=== PATIENT | female | born 1935 | race Caucasian/White ===

== ENCOUNTER → 2016-10-28 | Outpatient (CLI) | payer OTHER ==
[~2016-10-28] MED LIST: ACET-749 PO; ACET325T96 PO; AMLO-110 PO; ASPCH81X PO; ASPI-435 PO; CHOL1000 PO; CLR10 PO; CYAN10005 PO; ESCI10TA17 PO; GLUC750C4 PO; LATA0.009 OPR; LATA0.5S OPR; LEVO100T PO; LEVO150T9 PO; LORA10CA2 PO; NEBI10TA2 PO; SPIR25TA PO; TIMO0.2528 OPR; TIMO0.5S2 OPR
--- NOTE | 2016-11-03 07:24 | CODING QUERY MEDICAL NECESSITY ---
SUPPORTING DIAGNOSIS NEEDED A supporting diagnosis is required for the test/procedure performed on this patient in order for us to be reimbursed by the patient's insurance. Please provide a supporting diagnosis for the following test/procedure listed below next to the test name along with your signature. *If there is no additional diagnosis for this patient that would support the following test/procedure please document that below next to the test/procedure. Test(s)/Procedure(s) that require a supporting diagnosis: * DXA BONE DENSITY DIAGNOSIS: * DOS: 10/28/16 Provider Signature: Date: Thank you Jeanie Colon Health Information Management Once completed, please kindly fax back to [phone] For questions please call [phone]
== END | disposition home or self-care (01) ==
LOC: C.MAMM 13:43
PROVIDERS: ATTEND Family Medicine
DX: Z13.820 Encounter for screening for osteoporosis (principal)

== ENCOUNTER → 2017-01-11 | Outpatient (CLI) | payer OTHER ==
[~2017-01-11] MED LIST changes: -ASPCH81X PO; -GLUC750C4 PO; -LEVO150T9 PO; -LORA10CA2 PO; -TIMO0.2528 OPR
--- NOTE | 2017-01-11 16:38 | MAMMOGRAPHY REPORT ---
BILATERAL DIGITAL SCREENING MAMMOGRAM WITH CAD: 01/11/2017 CLINICAL HISTORY: Routine screening. Patient has no complaints. TECHNIQUE: Bilateral CC and MLO views were obtained. Current study was also evaluated with a Comput er Aided Detection (CAD) system. COMPARISON: Comparison is made to exams dated: 01/09/2016 mammogram, 11/08/2013 mammogram, 01/07/2015 mammogram, 11/06/2012 mammogram, 11/03/2011 mammogram, and 11/02/2010 mammogram - [facility]. BREAST COMPOSITION: The tissue of both breasts is heterogeneously dense, which may obscure small ma sses. FINDINGS: A linear scar marker overlies the upper outer middle one third of the right breast. There are a few benign round calcifications in the breasts. No suspicious mass, architectural distortion or cluster of new, suspicious microcalcifications is seen. IMPRESSION: ACR BI-RADS CATEGORY 1: NEGATIVE There is no mammographic evidence of malignancy. A 1 year screening mammogram is recommended. The p atient will receive written notification of the results. Approximately 10% of breast cancers are not detected with mammography. A negative mammographic repor t should not delay biopsy if a clinically suggestive mass is present. Chaya Nair M.D. ay/:01/11/2017 16:06:39 Tapper Helper: James CHARLES)(M), [facility] letter sent: Normal 1/2 BI-RADS Code: ACR BI-RADS Category 1: Negative
== END | disposition home or self-care (01) ==
LOC: C.MAMM 13:26
PROVIDERS: ATTEND Obstetrics & Gynecology
DX: Z12.31 Encounter for screening mammogram for malignant neoplasm of breast (principal)

== ENCOUNTER → 2017-01-19 | Day surgery (SDC) | payer OTHER ==
[2017-01-04 08:34] VITALS: Ht 154.9 cm; Wt 70.9 kg
[~2017-01-19] VITALS: Ht 154.9 cm; Wt 70.9 kg
[~2017-01-19] MED LIST changes: +ACETAMINOPHEN/CODEINE 300/30MG TAB PO PRN; +ATROPINE SULFATE 0.1 MG/ML 5ML SYR IV PRN; +BUPIVACAINE 0.5 % 5 MG/1 ML PF 10ML VIAL ONE; +CLINDAMYCIN PHOS 150 MG/ML 2 ML VIAL IV SCH; +EpHEDrine SULFATE INJ 50 MG/ML AMP IV PRN; +FENTANYL CITRATE INJ 50 MCG/1 ML 2 ML VIAL IV PRN; +FENTANYL CITRATE INJ 50 MCG/1 ML 2 ML VIAL ONE; +LACTATED RINGER'S 1000ML 1,000 ML IV SCH; +LIDOCAINE HCL 2% 2 ML VIAL (20MG/ML) ONE; +LIDOCAINE HCL 2% LOCAL 20 ML VIAL ONE; +MIDAZOLAM HCL 1 MG/ML 2ML VIAL ONE; +ONDANSETRON INJ 2 MG/ML 2 ML VIAL IV PRN; +PROPOFOL IV EMULSION 10 MG/ML 20 ML VIAL IV ONE; +SODIUM CHLORIDE 0.9% 1000ML 1,000 ML IV SCH
--- NOTE | 2017-01-19 06:55 | History & Physical Bridge - SC ---
H&P Re-Evaluation Bridge Note: I have examined the patient, reviewed the History & Physical and in the interval since the performance of the History & Physical I have noted the following changes of clinical significance: No changes noted
[2017-01-19 07:40] VITALS: TEMP 36.3
--- NOTE | 2017-01-19 07:40 | Discharge Instructions-SurgCtr ---
Discharge Instructions Date of Service Jan 19, 2017. Visit Reason for Visit: Right Carpal Tunnel Syndrome, Right Ring Trigger F Discharge Discharge Diagnosis / Problem: RIGHT CARPAL TUNNEL SYNDROME, RING TRIGGER FINGER Discharge Goals Goal(s): Decrease discomfort, Improve function, Therapeutic intervention Activity Recommendations Activity Limitations: per Instructions/Follow-up section LIMITED USE OF RIGHT HAND Anesthesia . Post Anesthesia Instructions: If you have had General Anesthesia or IV Sedation: * Do not drive today. * Resume driving when surgeon permits. * Do not make important decisions or sign legal documents today. * Call surgeon for: 1. Temperature elevations greater than 101 degrees F. 2. Uncontrollable pain. 3. Excessive bleeding. 4. Persistent nausea and vomiting. 5. Medication intolerance (nausea, vomiting or rash). * For nausea and vomiting use only clear liquids such as: tea, soda, bouillon until nausea subsides, then gradually increase diet as tolerated. * If you have any concerns or questions, call your surgeon's office. If physician is unavailable and it is an emergency, call 911 or go to the nearest emergency room. . Instructions / Follow-Up Instructions / Follow-Up MEDICATIONS: * Resume previous medications unless instructed otherwise by your surgeon. * Always take pain medication on a full stomach or with food to avoid upset stomach. * Do not drink alcohol or drive while taking narcotics. * Ibuprofen or Tylenol may be taken if narcotic not needed. SPECIAL CARE INSTRUCTIONS: __ None __ Keep extremity elevated and iced x 48 hours; apply ice 20-30 minutes 8-10 times/day. May remove at night. __ Sling __24 hrs/day __ Remove at night __ Shoulder Immobilizer __ 24 hrs/day __ Remove at night _X_ Dressing _X_ Maintain until seen in office, may shower with plastic over site __ Remove dressings in 24-48 hours and then may shower __ Cover incisions with band-aids after showering __ Do not remove steri-strips Call physician if chills or temperature rises above 102 degrees or pain unrelieved by prescribed pain medications at . FOLLOW UP IN 2 WEEKS . Diet Recommendations Home Diet: resume previous diet Procedures Procedures Performed: Right Carpal Tunnel Release And Right Ring Trigger Finger Release Pending Studies Studies pending at discharge: no Medical Emergencies . Who to Call and When: Medical Emergencies: If at any time you feel your situation is an emergency, please call 911 immediately. . Non-Emergent Contact Non-Emergency issues call your: Surgeon . . "Provider Documentation" section prepared by Mello Esqueda.
--- NOTE | 2017-01-19 07:44 | [facility] Post Operative Brief Note ---
Immediate Operative Summary Operative Date Jan 19, 2017. Pre-Operative Diagnosis Right Carpal Tunnel Syndrome, Right Ring Trigger Finger Post-Operative Diagnosis Same Procedure(s) Performed Right Carpal Tunnel Release And Right Ring Trigger Finger Release Surgeon Dr. Begum Dairy Equipment Repairer Surgeon(s) Faisal Esqueda PA-C Estimated Blood Loss Minimal Findings Right Carpal Tunnel Syndrome; Right Ring Trigger Finger Specimens None Anesthesia Local with IV Sedation Complication(s) None Disposition Recovery Room / PACU
--- NOTE | 2017-01-19 07:59 | OPERATIVE REPORT ---
DATE OF OPERATION: 01/19/2017 SURGEON: Puneet Begum MD. LIME BOILER: PHILLIP Hernandez. PREOPERATIVE DIAGNOSES: 1. Right carpal tunnel syndrome. 2. Right ring trigger finger. POSTOPERATIVE DIAGNOSES: Same. PROCEDURE PERFORMED: 1. Right carpal tunnel release. 2. Right ring trigger finger release. COMPLICATIONS: None. ESTIMATED BLOOD LOSS: Minimal. TOURNIQUET TIME: 8 minutes at 250 mmHg. OPERATIVE INDICATIONS: The patient is a 81-year-old elderly female who has had a several-year history of right hand pain, discomfort and numbness. Over the past year or so, she developed intermittent triggering of her ring finger as well. Symptoms have gradually progressed. She had nerve studies that revealed moderate carpal tunnel syndrome. She elected to proceed with carpal tunnel release. She also elected to proceed with trigger finger release. OPERATIVE PROCEDURE: The patient taken to the operating room, identified and placed on the operating table in supine position. All contact areas were appropriately padded. IV antibiotics were provided by anesthesia team. A right forearm tourniquet was placed. Some IV sedation was provided. A total of 14 mL of a 50:50 combination of 0.5% Marcaine and 2% lidocaine were then injected in and around the proposed incision site. The right hand was then prepped and draped in the usual sterile fashion. The right arm was elevated and exsanguinated with Esmarch and tourniquet was placed at 250 mmHg. Attention was first drawn to the ring finger. A transverse incision was made in the base of the ring finger, just distal to the palmar crease. Blunt dissection was carried out through the subcutaneous tissue directly down to the flexor tendon bea. A1 bea was identified. It was transected with use of scissors. Finger was taken through an active and active assisted range of motion, there were no signs of further triggering. Attention was then drawn to the carpal tunnel release. A 2.5-3 cm incision was made in the palm, just ulnar to the palmaris longus tendon. Blunt dissection was carried out through the subcutaneous tissues down to the level of the palmar fascia. The palmar fascia was incised longitudinally in line with skin incision. The underlying transverse carpal ligament was identified. It was transected distally with use of a [place] blade knife and then bluntly spread. Attention then drawn proximally. Blunt dissection was carried out above and below the ligament proximally. The ligament was transected from minimum distance of 3 cm proximal to the wrist flexion crease. The ligament was bluntly spread and found to be completely released. The wound was then irrigated with copious amounts of normal saline. The tourniquet was then let down for a final tourniquet time of 8 minutes. Hemostasis was assured with use of electrocautery. The wound was once again irrigated. The skin of both incisions was then closed with 5-0 nylon suture in a horizontal mattress fashion. The hand was then cleaned and dried and a sterile dressing composed of Xeroform, 4 x 4's, sterile cast padding and Yosvany bandage were applied. The patient then transferred to the recovery room in stable condition. The patient tolerated the procedure well with no complications. All needle and sponge counts were correct at the end of the operation. I attest to the content of the Intraoperative Record and any orders documented therein. Any exceptio ns are noted below.
[2017-01-19 08:08] VITALS: BP 134/74; PULSE 52; O2SAT 96
--- NOTE | 2017-01-19 08:18 | Anesthesia Progress Nt - [facility] ---
Anesthesia Post Op Note Date & Time Jan 19, 2017 at 08:17 Vital Signs Pain Intensity: 0 Vital Signs Past 12 Hours Date Time Temp Pulse Resp B/P Pulse Ox O2 Delivery O2 Flow Rate FiO2 01/19/17 08:08 52 16 134/74 96 Room Air 01/19/17 07:40 36.3 62 16 116/58 98 Room Air 01/19/17 06:28 36.7 62 18 175/83 96 Room Air Notes Mental Status: alert / awake / arousable, participated in evaluation Pt Amnestic to Procedure: Yes Nausea / Vomiting: adequately controlled Pain: adequately controlled Airway Patency, RR, SpO2: stable & adequate BP & HR: stable & adequate Hydration State: stable & adequate Anesthetic Complications: no major complications apparent
== END | disposition home or self-care (01) ==
LOC: X.SURG 06:14
PROVIDERS: ATTEND Orthopaedic Surgery Sports Medicine
DX: G56.01 Carpal tunnel syndrome, right upper limb (principal); M65.341 Trigger finger, right ring finger; Z90.710 Acquired absence of both cervix and uterus; I10 Essential (primary) hypertension; E03.9 Hypothyroidism, unspecified; Z88.0 Allergy status to penicillin; Z88.2 Allergy status to sulfonamides; Z88.8 Allergy status to other drugs, medicaments and biological substances

== ENCOUNTER 2017-05-20 09:31 | Emergency (ER) | payer OTHER ==
[~2017-05-20] VITALS: Ht 154.9 cm; Wt 74.8 kg
[~2017-05-20 09:31] MED LIST changes: -ACETAMINOPHEN/CODEINE 300/30MG TAB PO PRN; -ATROPINE SULFATE 0.1 MG/ML 5ML SYR IV PRN; -BUPIVACAINE 0.5 % 5 MG/1 ML PF 10ML VIAL ONE; -CLINDAMYCIN PHOS 150 MG/ML 2 ML VIAL IV SCH; -EpHEDrine SULFATE INJ 50 MG/ML AMP IV PRN; -FENTANYL CITRATE INJ 50 MCG/1 ML 2 ML VIAL IV PRN; -FENTANYL CITRATE INJ 50 MCG/1 ML 2 ML VIAL ONE; -LACTATED RINGER'S 1000ML 1,000 ML IV SCH; -LATA0.5S OPR; -LIDOCAINE HCL 2% 2 ML VIAL (20MG/ML) ONE; -LIDOCAINE HCL 2% LOCAL 20 ML VIAL ONE; -MIDAZOLAM HCL 1 MG/ML 2ML VIAL ONE; -ONDANSETRON INJ 2 MG/ML 2 ML VIAL IV PRN; -PROPOFOL IV EMULSION 10 MG/ML 20 ML VIAL IV ONE; -SODIUM CHLORIDE 0.9% 1000ML 1,000 ML IV SCH
[2017-05-20 09:40] VITALS: TEMP 37; Ht 154.9 cm; Wt 74.8 kg
[2017-05-20] MEDS ORDERED: OXYMETAZOLINE HCL 0.05% NA SPR 15 ML BTL ONE (09:53)
[2017-05-20] MEDS ORDERED: SILVER NITR/POTASSIUM NITRATE 10 APPLICATOR PACK ONE (09:58)
[2017-05-20] MEDS ORDERED: LATA0.5S OPR (10:29)
--- NOTE | 2017-05-20 11:05 | EMERGENCY ROOM VISIT NOTE ---
History Report prepared by Fletcher: Monica Blake Under the Supervision of: Dr. Kevin Jimenez D.O. First contact with patient: 09:55 Chief Complaint: NOSE BLEED (MINOR) Stated Complaint: NOSEBLEED History of Present Illness The patient is a 81 year old female who presents to the Emergency Room with complaints of intermittent epistaxis for the past week. The patient has never experienced frequent nosebleeds before. She has had 4 nosebleeds this week. The first one started when she was blowing her nose. The other 3 started while she was not doing anything in particular. The right naris has been bleeding. Today her nose started bleeding around 0900. She has no other complaints. Source of History: patient Onset: past week Position: nose Quality: other (bleed) Timing: intermittent Review of Systems See HPI for pertinent positives & negatives. A total of 10 systems reviewed and were otherwise negative. Past Medical & Surgical Medical Problems: (1) Hypothyroidism Family History Noncontributory secondary to age. Social History Smoking Status: Never Smoker Marital Status: Occupation Status: retired Current/Historical Medications Scheduled Amlodipine (Norvasc), 5 MG PO HS Aspirin (Aspirin 81), 1 TAB PO QAM Cholecalciferol (Vitamin D3), 1 TAB PO QAM Cyanocobalamin (Vitamin B-12), 1,000 MCG PO QAM Escitalopram (Lexapro), 10 MG PO HS Latanoprost (Xalatan 0.005% Oph Flor), 1 DROPS OPR HS Levothyroxine Sodium (Synthroid), 100 MCG PO QAM Nebivolol Hcl (Bystolic), 10 MG PO QAM Spironolactone (Aldactone), 25 MG PO QAM Timolol Maleate (Ophth) (Timoptic-Xe 0.5% Oph), 1 DROPS OPR QAM Scheduled PRN Acetaminophen Tab (Tylenol), 1 TAB PO Q6H PRN for Pain Acetaminophen/Codeine (Tylenol W/Codeine #3), 1-2 TAB PO Q6 PRN for Pain Loratadine (Claritin), 10 MG PO DAILY PRN for ALLERGIES Allergies Coded Allergies: Cephalexin (Verified Allergy, Intermediate, RASH, 01/19/17) Penicillins (Verified Allergy, Intermediate, RASH, 01/19/17) Brimonidine (Verified Allergy, Unknown, EYE REDNESS, 01/19/17) Carboxymethylcellulose (Verified Allergy, Unknown, EYE REDNESS, 01/19/17) Dorzolamide (Verified Allergy, Unknown, ITCHING EYES AND ITCHING BACK OF THROAT, 01/19/17) Hydrochlorothiazide (Verified Allergy, Unknown, RASH, 01/19/17) PT HAS NEVER TAKEN BUT STATES HAS SULFA IN IT Sulfa Drugs (Unverified Allergy, Unknown, RASH, 01/19/17) Morphine (Verified Adverse Reaction, Unknown, DROPS BLOOD PRESSURE AND PASSES OUT, 01/19/17) Propoxyphene (Unverified Adverse Reaction, Unknown, DIZZINESS, LIGHTHEADEDNESS, 01/19/17) Physical Exam Vital Signs Date Time Temp Pulse Resp B/P (MAP) Pulse Ox O2 Delivery O2 Flow Rate FiO2 05/20/17 09:40 37.0 67 20 142/73 96 Room Air Physical Exam CONSTITUTIONAL/VITAL SIGNS: Reviewed / noted above. GENERAL: Non-toxic in appearance. INTEGUMENTARY: Warm, dry, and [place]. HEAD: Normocephalic. EYES: without scleral icterus or trauma. ENT/OROPHARYNX: Small superficial blood vessel in the right anterior septum that currently was not actively bleeding, but was likely the site of her recent nosebleeds. LYMPHADENOPATHY/NECK: Is supple without lymphadenopathy or meningismus. RESPIRATORY: Lungs clear and equal. CARDIOVASCULAR: Regular rate and rhythm. GI/ABDOMEN: Soft and nontender. No organomegaly or pulsatile mass. No rebound or guarding. Normal bowel sounds. EXTREMITIES: Warm and well perfused. BACK: No CVA tenderness. NEUROLOGICAL: Intact without focal deficits. PSYCHIATRIC: normal affect. MUSCULOSKELETAL: Normally developed with good muscle tone. Medical Decision & Procedures Medications Administered Medications (Trade) Dose Ordered Sig/Aman Route Start Time Stop Time Status Last Admin Dose Admin Oxymetazoline HCl (Afrin 0.05% Nasal [place]) 75 sprays STK-MED ONCE .ROUTE 05/20/17 09:53 05/20/17 09:54 DC 05/20/17 09:53 75 SPRAYS Silver Nitrate/ Potassium Nitrate (Silver Nitrate Applicators) 1 pkt STK-MED ONCE .ROUTE 05/20/17 09:58 05/20/17 09:59 DC 05/20/17 09:58 1 PKT ED Course 0955: Previous medical records were reviewed. The patient was evaluated in room C1B. A complete history and physical examination was performed. 0958: Silver Nitrate/Potassium Nitrate 1 pkt TOP. 1000: Silver nitrate cautery was used to cauterize the blood vessel. 1055: I reevaluated the patient. Her nosebleed has resolved. I discussed the results and findings with the patient. She verbalized agreement of the treatment plan. She was discharged home. Medical Decision Differential diagnosis: Etiologies such as anterior epistaxis, coagulopathy, traumatic injury, fracture , septal hematoma, posterior epistaxis as well as other pathologies were entertained. This is a 81-year-old female who presents to the ED with a chief complaint of a nosebleed. The nose has bled 4 times in the past week. It is bleeding in the right anterior nares. The patient came in for evaluation of this. Her last epistaxis was this morning. She currently has no active bleeding. There is a small blood vessel that is visible in the right anterior septum. This was cauterized. This caused some temporary bleeding but then subsided. There was no additional bleeding. The patient is felt to be stable for discharge. Medication Reconcilliation Current Medication List: was personally reviewed by me Blood Pressure Screening Patient's blood pressure: Elevated blood pressure Blood pressure disposition: Elevated BP felt to be situational Impression Primary Impression: Anterior epistaxis Scribe Attestation The scribe's documentation has been prepared under my direction and personally reviewed by me in its entirety. I confirm that the note above accurately reflects all work, treatment, procedures, and medical decision making performed by me. Departure Information Dispostion Home / Self-Care Referrals Rosalinda Dickson DO (PCP) Patient Instructions [facility] Additional Instructions Use nasal compression device for 10-15 minutes should bleeding recur. If recurrent or persistent bleeding, return for reevaluation. Avoid bending over or lifting heavy objects in the next 10 days. Avoid picking or blowing the nose in the next 10 days.
[2017-05-20 11:39] VITALS: BP 144/66; PULSE 52; O2SAT 96
== END 2017-05-20 11:41 | disposition home or self-care (01) ==
LOC: C.EDB 09:32 → C.EDC 11:41
DX: R04.0 Epistaxis (principal); E03.9 Hypothyroidism, unspecified; Z79.82 Long term (current) use of aspirin; Z79.899 Other long term (current) drug therapy; Z88.0 Allergy status to penicillin; Z88.2 Allergy status to sulfonamides; Z88.5 Allergy status to narcotic agent; Z88.8 Allergy status to other drugs, medicaments and biological substances

== ENCOUNTER → 2017-05-26 | Outpatient (CLI) | payer OTHER ==
[~2017-05-26] MED LIST changes: -LATA0.009 OPR; +LATA0.5S OPR
[2017-05-26 11:27] LABS: HEMATOCRIT 44.5 % (37-47); MEAN CELL VOLUME 95.7 fL (80-100); MEAN CORPUSCULAR HEMOGLOBIN 32.9 pg (25-34); MEAN CORPUSCULAR HGB CONC 34.4 g/dl (32-36); MEAN PLATELET VOLUME 10.9 fL (7.4-10.4); PLATELET COUNT 217 K/uL (130-400); RED BLOOD COUNT 4.65 M/uL (4.2-5.4); WHITE BLOOD COUNT 5.75 K/uL (4.8-10.8)
[2017-05-26 11:39] LABS: ALT/SGPT 27 U/L (12-78); BLOOD UREA NITROGEN 15 mg/dl (7-18); BUN/CREATININE RATIO 20.7 (10-20); CALCIUM 9.3 mg/dl (8.5-10.1); CARBON DIOXIDE 29 mmol/L (21-32); CHLORIDE 105 mmol/L (98-107); CHOLESTEROL 226 mg/dl (0-200); CREATININE 0.71 mg/dl (0.60-1.20); GLUCOSE 91 mg/dl (70-99); POTASSIUM 4.5 mmol/L (3.5-5.1); SODIUM 140 mmol/L (136-145)
[2017-05-26 11:49] LABS: ALB/GLOB RATIO 0.9 (0.9-2); ALKALINE PHOSPHATASE 75 U/L (45-117); AST/SGOT 21 U/L (15-37); CHOLESTEROL/HDL RATIO 3.9; HDL CHOLESTEROL 58 mg/dl; LDL CHOLESTEROL CALCULATED 148 mg/dl; TRIGLYCERIDES 98 mg/dl (0-150); VERY LOW DENSITY LIPOPROT CALC 20 mg/dl
== END | disposition home or self-care (01) ==
LOC: C.LABBC 07:24
PROVIDERS: ATTEND Family Medicine
DX: Z00.00 Encounter for general adult medical examination without abnormal findings (principal); E03.9 Hypothyroidism, unspecified; I10 Essential (primary) hypertension; E78.00 Pure hypercholesterolemia, unspecified

== ENCOUNTER → 2017-11-24 | Outpatient (CLI) | payer OTHER ==
[~2017-11-24] MED LIST changes: +ACET-1693 PO; -ACET-749 PO; -ACET325T96 PO
[2017-11-24 11:49] LABS: ALBUMIN 3.7 gm/dl (3.4-5.0); ALT/SGPT 23 U/L (12-78); BLOOD UREA NITROGEN 18 mg/dl (7-18); CALCIUM 9.2 mg/dl (8.5-10.1); CARBON DIOXIDE 29 mmol/L (21-32); CHOLESTEROL 205 mg/dl (0-200); CREATININE 0.73 mg/dl (0.60-1.20); GLUCOSE 96 mg/dl (70-99); POTASSIUM 4.6 mmol/L (3.5-5.1); SODIUM 137 mmol/L (136-145)
[2017-11-24 11:59] LABS: ALKALINE PHOSPHATASE 69 U/L (45-117); AST/SGOT 17 U/L (15-37); LDL CHOLESTEROL CALCULATED 138 mg/dl; TOTAL PROTEIN 7.6 gm/dl (6.4-8.2)
== END | disposition home or self-care (01) ==
LOC: C.LABBC 07:40
PROVIDERS: ATTEND Family Medicine
DX: E03.9 Hypothyroidism, unspecified (principal); I10 Essential (primary) hypertension; E78.00 Pure hypercholesterolemia, unspecified

== ENCOUNTER → 2018-01-16 | Outpatient (CLI) | payer OTHER ==
--- NOTE | 2018-01-17 07:47 | MAMMOGRAPHY REPORT ---
BILATERAL DIGITAL SCREENING MAMMOGRAM TOMOSYNTHESIS WITH CAD: 01/16/2018 CLINICAL HISTORY: Routine screening. TECHNIQUE: Breast tomosynthesis in addition to standard 2D mammography was performed. Current study was also evaluated with a Computer Aided Detection (CAD) system. COMPARISON: Comparison is made to exams dated: 01/11/2017 mammogram, 01/09/2016 mammogram, 01/07/2015 m ammogram, 11/08/2013 mammogram, 11/06/2012 mammogram, and 11/03/2011 mammogram - [facility] enter. BREAST COMPOSITION: The tissue of both breasts is heterogeneously dense, which may obscure small mas ses. FINDINGS: A linear scar marker overlies the upper outer quadrant of the right breast, and there is ex pected architectural distortion at the site of prior surgery. Scattered benign coarse calcifications . No suspicious mass, architectural distortion or cluster of suspicious microcalcifications is seen. IMPRESSION: ACR BI-RADS CATEGORY 1: NEGATIVE There is no mammographic evidence of malignancy. A 1 year screening mammogram is recommended. The pa tient will receive written notification of the results. Approximately 10% of breast cancers are not detected with mammography. A negative mammographic report should not delay biopsy if a clinically suggestive mass is present. Chaya Nair M.D. ay/:01/16/2018 21:11:14 Property Master: James SPRINGER(Daniel)(M), [facility] letter sent: Normal 1/2 BI-RADS Code: ACR BI-RADS Category 1: Negative
== END | disposition home or self-care (01) ==
LOC: C.MAMM 13:20
PROVIDERS: ATTEND Obstetrics & Gynecology
DX: Z12.31 Encounter for screening mammogram for malignant neoplasm of breast (principal)

== ENCOUNTER 2018-02-15 13:37 | Emergency (ER) | payer OTHER ==
[~2018-02-15] VITALS: Ht 157.5 cm; Wt 74.5 kg
[2018-02-15 13:41] VITALS: TEMP 36.5; Ht 157.5 cm; Wt 74.5 kg
[2018-02-15] MEDS ORDERED: DIPHTHERIA/TETANUS/PERTUSSIS 0.5 ML SYR/VIAL IM. ONE (14:00)
--- NOTE | 2018-02-15 14:23 | DIAGNOSTIC IMAGING REPORT ---
HEAD WITHOUT CONTRAST (CT) CLINICAL HISTORY: 82 years-old Female with Fall, struck head, on aspirin. Acute head injury TECHNIQUE: Multiple axial CT images of the head were obtained without contrast. A dose lowering technique was utilized adhering to the principles of ALARA. COMPARISON: CT cervical spine and maxillofacial study 02/15/2018. FINDINGS: No acute intracranial hemorrhage, midline shift, intracranial mass, hydrocephalus, territorial ischemia or abnormal extra-axial collection. There is moderate to severe cerebral atrophy with ex vacuo ventriculomegaly. Chronic small vessel ischemic changes are noted. Cerebral vascular calcifications are seen at the level of the skull base. The calvarium is intact. The paranasal sinuses, mastoid air cells, and middle ear cavities are clear. Age-indeterminate bilateral nasal bone fractures without significant soft tissue swelling. Orbits are symmetric. IMPRESSION: 1. No acute intracranial abnormality or calvarial fracture. 2. Age-indeterminate bilateral nasal bone fractures without significant soft tissue swelling. Correlate with point tenderness. The above report was generated using voice recognition software. It may contain grammatical, syntax or spelling errors. Electronically signed by: Amos Wu M.D. 02/15/2018 2:22 PM Dictated Date/Time: 02/15/2018 2:19 PM
--- NOTE | 2018-02-15 14:24 | DIAGNOSTIC IMAGING REPORT ---
CERVICAL SPINE W/O CT DOSE: HISTORY: Trauma. Pain. Fall, struck head, on aspirin TECHNIQUE: Multiaxial CT images of the cervical spine were performed and reformatted in the sagittal and coronal plane without the use of contrast. A dose lowering technique was utilized adhering to the principles of ALARA. COMPARISON: None. FINDINGS: No fractures. No subluxation. Prevertebral soft tissues and the C1-C2 interval are intact. No pneumothorax. Mild degenerative disc change from C5 through T1 IMPRESSION: No fractures within the cervical spine. Mild degenerative change. The above report was generated using voice recognition software. It may contain grammatical, syntax or spelling errors. Electronically signed by: Tomas Rivas M.D. 02/15/2018 2:23 PM Dictated Date/Time: 02/15/2018 2:18 PM
--- NOTE | 2018-02-15 14:25 | DIAGNOSTIC IMAGING REPORT ---
FACIAL BONES-MXILLOFAC WITHOUT CLINICAL HISTORY: 82 years-old Female presenting with Fall, struck head, on aspirin. TECHNIQUE: Multidetector CT of the face was performed without the use of intravenous contrast. IV contrast: None. A dose lowering technique was used consistent with the principles of ALARA (as low as reasonably achievable). COMPARISON: None. CT DOSE (mGy.cm): The estimated cumulative dose is 1424.97 mGy.cm. FINDINGS: High Pressure Cleaner topogram: Unremarkable. Minimally displaced fractures of the nasal bones with slight deviation to the left. Overlying soft tissue infiltration and swelling suggested greater on the right. No other fracture. Multiple polypoid mucosal thickening in the left max or sinus. Remaining paranasal sinuses and mastoid air cells clear. Orbits intact. Limited intracranial violation demonstrates age-related volume loss. Superficial soft tissues of the face otherwise normal. Mandible intact. Temporomandibular joints intact. Teeth intact. IMPRESSION: Minimally displaced nasal bone fractures with associated overlying contusion. Electronically signed by: Alexey King M.D. 02/15/2018 2:24 PM Dictated Date/Time: 02/15/2018 2:19 PM
[2018-02-15] MEDS ORDERED: NAPHDRO11 OPB (14:54)
--- NOTE | 2018-02-15 14:56 | DIAGNOSTIC IMAGING REPORT ---
L KNEE 3 VIEWS CLINICAL HISTORY: Fall, L knee pain COMPARISON: None. DISCUSSION: Moderate degenerative change of all major joint compartments. No evidence of fracture or dislocation. No significant joint effusion. There is no evidence for soft tissue swelling. IMPRESSION: Degenerative change. No acute process. The above report was generated using voice recognition software. It may contain grammatical, syntax or spelling errors. Electronically signed by: Tomas Rivas M.D. 02/15/2018 2:54 PM Dictated Date/Time: 02/15/2018 2:53 PM
--- NOTE | 2018-02-15 14:56 | DIAGNOSTIC IMAGING REPORT ---
R SHOULDER MIN 2 VIEWS ROUTINE CLINICAL HISTORY: 82 years-old Female presenting with Fall, R shoulder pain. TECHNIQUE: Internal rotation, external rotation, Grashey views of the right shoulder were obtained. COMPARISON: None. FINDINGS: Mild osteophytosis at the acromioclavicular joint. Acromioclavicular and glenohumeral joints congruent. No acute fracture or malalignment. No advanced degenerative change. No radiographic soft tissue abnormality. IMPRESSION: 1. No acute osseous injury. 2. Mild degenerative changes of the acromioclavicular joint. Electronically signed by: Alexey King M.D. 02/15/2018 2:54 PM Dictated Date/Time: 02/15/2018 2:53 PM
--- NOTE | 2018-02-15 15:01 | EMERGENCY ROOM VISIT NOTE ---
History First contact with patient: 13:47 Chief Complaint: SHOULDER PAIN Stated Complaint: FALL-PAINFUL RIGHT SHOULDER,NOSE History of Present Illness The patient is a 82 year old female who presents to the Emergency Room via private vehicle with complaints of "fall-painful right shoulder, nose". The patient states that yesterday evening she was At a home that she was not as familiar with and the door to the the [facility] was left open. She tripped over this and fell forward striking her glasses and subsequently her nose. She did not lose consciousness however since that time she notes pain in the anterior portion of the proximal nose as well as her right shoulder. She notes that she does take aspirin daily but did not take one today secondary to her injuries. She rates her overall pain is a 5/10. There has been no dizziness. She denies any chest pain or shortness of breath or other event to cause the fall rather she believes it was mechanical. Review of Systems A complete 6-point Review of Systems was discussed with the patient, with pertinent positives and negatives listed in the History of Present Illness. All remaining Review of Systems questions can be considered negative unless otherwise specified. Past Medical/Surgical History Medical Problems: (1) Hypothyroidism Social History Smoking Status: Never Smoker Marital Status: Occupation Status: retired Current/Historical Medications Scheduled Amlodipine (Norvasc), 5 MG PO HS Aspirin (Aspirin 81), 1 TAB PO QAM Cholecalciferol (Vitamin D3), 1 TAB PO QAM Clindamycin HCl (Clindamycin HCl), 1 CAP PO TID Cyanocobalamin (Vitamin B-12), 1,000 MCG PO QAM Escitalopram (Lexapro), 10 MG PO HS Levothyroxine Sodium (Synthroid), 100 MCG PO QAM Naphazoline-Polyethylene Glyco (Eye Drops), 1 DROP OPB BID Nebivolol Hcl (Bystolic), 10 MG PO QAM Spironolactone (Aldactone), 25 MG PO QAM Scheduled PRN Acetaminophen Tab (Tylenol), 1 TAB PO Q6H PRN for Pain Loratadine (Claritin), 10 MG PO DAILY PRN for ALLERGIES Physical Exam Vital Signs Date Time Temp Pulse Resp B/P (MAP) Pulse Ox O2 Delivery O2 Flow Rate FiO2 02/15/18 15:30 59 18 139/65 95 Room Air 02/15/18 13:41 36.5 62 20 165/79 97 Room Air Physical Exam VITAL SIGNS - Vital signs and nursing notes were reviewed. Stable. GENERAL -82-year-old female appearing her stated age who is in no acute distress. Communicates well with provider and answers questions appropriately. SKIN - Without rashes. No meningeal or petechial rash. There is a small 1 cm healing laceration to the bridge of the nose. No active bleeding. No wound separation. There is some ecchymosis around the bilateral medial portions of the patient's lower eyelids. HEAD - NC/AT. No jimenez signs. EYES - PERRL with EOMI bilaterally. Sclera anicteric. No hyphema. EARS - No deformities of external structures noted on gross examination bilaterally. No hemotympanum. NOSE - Midline and without cyanosis. No epistaxis or purulent drainage noted. Overlying small laceration that is healing. Minimal tenderness to the proximal anterior aspect of the nose. MOUTH/OROPHARYNX - Without perioral cyanosis. Buccal mucosa pink and moist and without leukoplakia. Tongue midline with equal elevation of palate bilaterally. No tonsillar hypertrophy, erythema, or exudates noted. Fair dentition noted. NECK - Neck with FROM. Minimal C-spine tenderness. LUNGS - Chest wall symmetric without accessory muscle use, intercostals retractions, or central cyanosis. Normal vesicular breath sounds CTA B/L. No wheezes, rales, or rhonchi appreciated. CARDIAC - RRR with S1/S2. No murmur, rubs, or gallops appreciated. EXTREMITIES - No clubbing or peripheral cyanosis. No pretibial edema present. + 5/5 strength noted in UE/LE bilaterally. NEUROLOGIC - Cranial nerves II through XII grossly intact. Sensory intact to light touch throughout. PSYCH - A&Ox3 and cooperates fully with examiner. Pt is very pleasant and interacts well with examiner. Medical Decision & Procedures ER Provider Diagnostic Interpretation: HEAD WITHOUT CONTRAST (CT) CLINICAL HISTORY: 82 years-old Female with Fall, struck head, on aspirin. Acute head injury TECHNIQUE: Multiple axial CT images of the head were obtained without contrast. A dose lowering technique was utilized adhering to the principles of ALARA. COMPARISON: CT cervical spine and maxillofacial study 02/15/2018. FINDINGS: No acute intracranial hemorrhage, midline shift, intracranial mass, hydrocephalus, territorial ischemia or abnormal extra-axial collection. There is moderate to severe cerebral atrophy with ex vacuo ventriculomegaly. Chronic small vessel ischemic changes are noted. Cerebral vascular calcifications are seen at the level of the skull base. The calvarium is intact. The paranasal sinuses, mastoid air cells, and middle ear cavities are clear. Age-indeterminate bilateral nasal bone fractures without significant soft tissue swelling. Orbits are symmetric. IMPRESSION: 1. No acute intracranial abnormality or calvarial fracture. 2. Age-indeterminate bilateral nasal bone fractures without significant soft tissue swelling. Correlate with point tenderness. The above report was generated using voice recognition software. It may contain grammatical, syntax or spelling errors. Electronically signed by: Amos Wu M.D. 02/15/2018 2:22 PM Dictated Date/Time: 02/15/2018 2:19 PM CERVICAL SPINE W/O CT DOSE: HISTORY: Trauma. Pain. Fall, struck head, on aspirin TECHNIQUE: Multiaxial CT images of the cervical spine were performed and reformatted in the sagittal and coronal plane without the use of contrast. A dose lowering technique was utilized adhering to the principles of ALARA. COMPARISON: None. FINDINGS: No fractures. No subluxation. Prevertebral soft tissues and the C1-C2 interval are intact. No pneumothorax. Mild degenerative disc change from C5 through T1 IMPRESSION: No fractures within the cervical spine. Mild degenerative change. The above report was generated using voice recognition software. It may contain grammatical, syntax or spelling errors. Electronically signed by: Tomas Rivas M.D. 02/15/2018 2:23 PM Dictated Date/Time: 02/15/2018 2:18 PM FACIAL BONES-MXILLOFAC WITHOUT CLINICAL HISTORY: 82 years-old Female presenting with Fall, struck head, on aspirin. TECHNIQUE: Multidetector CT of the face was performed without the use of intravenous contrast. IV contrast: None. A dose lowering technique was used consistent with the principles of ALARA (as low as reasonably achievable). COMPARISON: None. CT DOSE (mGy.cm): The estimated cumulative dose is 1424.97 mGy.cm. FINDINGS: Staff Physical Therapy Assistant topogram: Unremarkable. Minimally displaced fractures of the nasal bones with slight deviation to the left. Overlying soft tissue infiltration and swelling suggested greater on the right. No other fracture. Multiple polypoid mucosal thickening in the left max or sinus. Remaining paranasal sinuses and mastoid air cells clear. Orbits intact. Limited intracranial violation demonstrates age-related volume loss. Superficial soft tissues of the face otherwise normal. Mandible intact. Temporomandibular joints intact. Teeth intact. IMPRESSION: Minimally displaced nasal bone fractures with associated overlying contusion. Electronically signed by: Alexey King M.D. 02/15/2018 2:24 PM Dictated Date/Time: 02/15/2018 2:19 PM R SHOULDER MIN 2 VIEWS ROUTINE CLINICAL HISTORY: 82 years-old Female presenting with Fall, R shoulder pain. TECHNIQUE: Internal rotation, external rotation, Grashey views of the right shoulder were obtained. COMPARISON: None. FINDINGS: Mild osteophytosis at the acromioclavicular joint. Acromioclavicular and glenohumeral joints congruent. No acute fracture or malalignment. No advanced degenerative change. No radiographic soft tissue abnormality. IMPRESSION: 1. No acute osseous injury. 2. Mild degenerative changes of the acromioclavicular joint. Electronically signed by: Alexey King M.D. 02/15/2018 2:54 PM Dictated Date/Time: 02/15/2018 2:53 PM L KNEE 3 VIEWS CLINICAL HISTORY: Fall, L knee pain COMPARISON: None. DISCUSSION: Moderate degenerative change of all major joint compartments. No evidence of fracture or dislocation. No significant joint effusion. There is no evidence for soft tissue swelling. IMPRESSION: Degenerative change. No acute process. The above report was generated using voice recognition software. It may contain grammatical, syntax or spelling errors. Electronically signed by: Tomas Rivas M.D. 02/15/2018 2:54 PM Dictated Date/Time: 02/15/2018 2:53 PM Medications Administered Medications (Trade) Dose Ordered Sig/Aman Route Start Time Stop Time Status Last Admin Dose Admin Diphtheria/ Pertussis/Tetanus Vacc (Adacel Inj) 0.5 ml ONCE ONCE IM. 02/15/18 14:00 02/15/18 14:01 DC 02/15/18 14:18 0.5 ML Medical Decision Patient was seen and evaluated as above in room D7. Review was performed of nursing notes and vital signs. After obtaining a thorough history and physical examination the above work up was performed. She presents to us today status post mechanical fall with bruising/laceration that is healing to the anterior nose and right shoulder and left knee pain. GCS 15. Due to mechanism of injury , I will elect to obtain a CT scan of the patient's head, C-spine and maxillofacial region. X-rays were also obtained of the left knee and right shoulder. Results as above. Only acute process at this time is nasal bone fractures. The wound on the anterior nose I believe is too old to reopen and close as at this time it is healed very well on its own. It was cleansed and dressed with a bacitracin dressing. She did receive her tetanus immunization here today. She was informed upon the findings of the imaging and is to follow with the family doctor. Incidentals were discussed. I do suspect this will be mechanical and do not suspect any emergent process. She is to call your nose and throat regarding the nose, and was given an arm sling for the right shoulder. She is also to call orthopedics to schedule follow-up. I suspect she likely is experiencing perhaps a rotator cuff injury of the right shoulder. Left anterior knee I suspect contusion. Because of the nasal bone fracture with accompanying nasal laceration is well-healed and the potential for this to be open she will be given prophylactic antibiotics. She has a penicillin allergy as well as a cephalosporin allergy. She will be given clindamycin. She notes that she has had this in the past. Risk of C. difficile was discussed. The patient was educated upon management, had questions answered prior to discharge, and was discharged home in good condition. Case was discussed with the attending physician who also personally evaluated the patient. Blood pressure elevated I believe secondary to situation. Medication list reviewed. In the evaluation and treatment of this patient, the following differential diagnoses were considered: Concussion, Contrecoup Injury, Brain Tumor, Depression, Encephalitis, Hypothyroidism, Meningitis, CVA, TIA, Migraine, Cluster Headache, Intracranial Abnormality, Intracranial Hemorrhage, Subdural Hematoma, Subarachnoid Hemorrhage, Hydrocephalus, Shoulder Contusion, Shoulder Fracture, Shoulder Dislocation, Thoracic Outlet Syndrome, Adhesive Capsulitis, Rotator Cuff Tear, Proximal Clavicle Head Fracture, Apical Pneumonia, Pneumothorax, Hemothorax, ,Patellar Fracture, Tibial Plateau Fracture, Distal Femur Fracture, ACL Injury, PCL Injury, Collateral Ligament Injury, Pes Anserine Bursitis, Maisonneuve Fracture. Impression Primary Impression: Fall Additional Impressions: Nasal bone fracture Laceration of nose Departure Information Dispostion Home / Self-Care Condition GOOD Prescriptions Clindamycin HCl (Clindamycin HCl) 300 Mg Cap 1 CAP PO TID for 5 Days, #15 CAP Prov: Balbir Givens PA-C 02/15/18 Referrals Rosalinda Dickson DO (PCP) Marques Wilson M.D. Martin, James S., M.D. Patient Instructions My [facility] Additional Instructions You have been treated in the Emergency Department for a Closed Head Injury, shoulder pain and nose bone fractures. No bleeding inside the brain. Clindamycin 300 mg every 8 hours to help prevent infection of your nose. This is at your pharmacy for pickup. Please follow-up with your fitness centre manager for evaluation post surgery, Dr. Wilson for your nose fracture, as well as Dr. Begum for your shoulder. For pain control, you can use the following [id number]-lakntac medicines: - Regular strength (325mg/tab) Tylenol (acetaminophen) 2 tabs every 4-6 hours as needed. Do not exceed 12 tablets in a 24 hour period. Avoid taking more than 3 grams (3000 mg) of Tylenol per day. This includes any other sources of acetaminophen you may take on a regular basis. - Regular strength (200 mg/tab) Advil (ibuprofen) 1-2 tabs every 4-6 hours as needed. Do not exceed a dose of 3200 mg per day. It is recommended you also follow with the family doctor to ensure continued care. Return to the Emergency Department if your current symptoms worsen despite treatment course outlined above, or if you develop any of the following symptoms : intractable pain despite aforementioned treatment course, visual disturbances , loss of vision, unilateral weakness or facial drooping, slurring of speech, loss of coordination, or loss of consciousness. Problem Qualifiers
[2018-02-15] MEDS ORDERED: CLC/300 PO (15:14)
--- NOTE | 2018-02-15 15:25 | EMERGENCY ROOM VISIT NOTE ---
ED Visit Note First contact with patient: 13:47 Patient was seen by our PA/GUNITE MIXER. I was involved in the patient's care and did evaluate the patient myself. I was involved in the care throughout the ER stay. The patient presents after falling. She does have a nasal fracture and what was thought to be a musculoskeletal injury to the shoulder. No cervical spine fracture, no intracranial bleeding. The patient was felt stable for discharge home with follow-up.
[2018-02-15 15:30] VITALS: BP 139/65; PULSE 59; O2SAT 95
== END 2018-02-15 15:30 | disposition home or self-care (01) ==
LOC: C.EDB 13:38 → C.EDD 15:30
DX: S02.2XXA Fracture of nasal bones, initial encounter for closed fracture (principal); S01.21XA Laceration without foreign body of nose, initial encounter; Y92.89 Other specified places as the place of occurrence of the external cause; W18.09XA Striking against other object with subsequent fall, initial encounter; M25.511 Pain in right shoulder; M25.562 Pain in left knee; E03.9 Hypothyroidism, unspecified; Z79.82 Long term (current) use of aspirin; Z79.899 Other long term (current) drug therapy; Z23 Encounter for immunization; Z88.0 Allergy status to penicillin; Z88.1 Allergy status to other antibiotic agents

== ENCOUNTER → 2018-02-21 | Outpatient (CLI) | payer OTHER ==
[~2018-02-21] MED LIST changes: +CLC/300 PO; -LATA0.5S OPR; +NAPHDRO11 OPB; -TIMO0.5S2 OPR
--- NOTE | 2018-02-21 10:16 | DIAGNOSTIC IMAGING REPORT ---
R UPPER EXT JOINT WITHOUT CLINICAL HISTORY: 82 years-old Female with RIGHT SHOULDER PAIN,R/O ROTATOR CUFF TEAR. Acute right shoulder pain status post fall COMPARISON: Right shoulder radiographs 02/15/2018. TECHNIQUE: Multiplanar, multi sequence MRI of the right shoulder was performed without intravenous contrast. FINDINGS: ROTATOR CUFF: Severe tendinosis of the intact anterior fibers supraspinatus. Moderate edema and fluid tracks along the supraspinatus myotendinous junction and musculature as seen on image 18 series 7. High-grade partial-thickness bursal sided tearing of the anterior fibers supraspinatus tendon measures up to 5 mm in AP dimension, not well seen on the coronal images secondary to slice selection. Intermediate grade interstitial tearing of the mid fibers supraspinatus tendon as seen on image 8 series 9. No significant supraspinatus atrophy. There is full-thickness tearing of the conjoined posterior supraspinatus and anterior infraspinatus tendon fibers with possibly a few insertional fibers intact. Overall measuring up to 1.7 x 2.4 cm in AP and transverse dimension respectively with torn and retracted fibers at the level of the mid humeral head. Severe atrophy of the infraspinatus musculature with extensive edema and fluid tracking along the myotendinous junction and infraspinatus musculature. There is mild to moderate atrophy of the infraspinatus musculature with moderate edema and fluid about the myotendinous junction and muscle. Moderate thickening of the insertional teres minor with possible low-grade insertional tearing as seen on images 5 and 6 of series 7. No full-thickness tear of the teres minor. Severe tendinosis of the subscapularis with intermediate grade interstitial tearing seen on image 9 series 5 involving the mid fibers. No full-thickness tear identified. BICEPS TENDON: Split tear of the long head biceps tendon within the intertubercular groove, image 14 series 5 with moderate to severe thickening of the intra-articular segment compatible with tendinosis. LABRUM: Multifocal fraying and irregularity about the labrum suggesting areas of chronic tearing. There is no evidence for a paralabral cyst. GLENOHUMERAL JOINT: There is mild joint space narrowing with marginal spurring about the glenohumeral joint. Humeral head is positioned slightly posterior within the glenoid fossa nicely seen on image 11 series 5 with mild chondromalacia of the posterior glenoid. Mild subcortical cystic changes of the greater tuberosity. No acute fracture or dislocation. Large joint effusion with synovitis. ACROMIOCLAVICULAR JOINT: Moderate to severe degenerative changes about the AC joint with capsular hypertrophy, marginal spurring, subcortical cystic changes and trace effusion. No evidence of os acromiale. Moderate subacromial/subdeltoid bursitis. OUTLET SPACES: The suprascapular notch and quadrilateral space are without obstructing or space occupying lesions. BONE MARROW: No focal abnormality, fracture or marrow occupying lesion. SOFT TISSUES: Extensive intramuscular edema about the rotator cuff musculature as above IMPRESSION: 1. Extensive intramuscular edema about the rotator cuff, notably involving the infraspinatus and teres minor tracking along the myotendinous junctions suggest grade II muscle strains with large full-thickness infraspinatus tear as above. There is associated mild to moderate atrophy of the infraspinatus musculature. 2. Tendinosis of the supraspinatus and subscapularis tendons with high-grade partial-thickness tearing of the supraspinatus as above. 3. Split tear of the long head biceps tendon. 4. 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 5. No acute fracture or dislocation. 6. Moderate subacromial/subdeltoid bursitis. The above report was generated using voice recognition software. It may contain grammatical, syntax or spelling errors. Electronically signed by: Amos Wu M.D. 02/21/2018 10:14 AM Dictated Date/Time: 02/21/2018 9:39 AM
== END | disposition home or self-care (01) ==
LOC: C.MRIBC 08:27
PROVIDERS: ATTEND Orthopaedic Surgery
DX: R60.0 Localized edema (principal); M75.81 Other shoulder lesions, right shoulder; S46.111A Strain of muscle, fascia and tendon of long head of biceps, right arm, initial encounter; M75.51 Bursitis of right shoulder; M19.011 Primary osteoarthritis, right shoulder; X58.XXXA Exposure to other specified factors, initial encounter

== ENCOUNTER → 2018-03-06 | Outpatient (CLI) | payer OTHER ==
[~2018-03-06] MED LIST changes: -CLC/300 PO
[2018-03-06 13:24] LABS: BASO % 0.3 %; BASO ABS # 0.02 K/uL (0-0.2); EOS % 1.6 %; EOS ABS # 0.12 K/uL (0-0.5); HEMATOCRIT 43.9 % (37-47); IG# 0.02 K/uL (0.00-0.02); LYMPH % 21.3 %; LYMPH ABS # 1.63 K/uL (1.2-3.4); MEAN CORPUSCULAR HEMOGLOBIN 32.1 pg (25-34); MEAN CORPUSCULAR HGB CONC 34.2 g/dl (32-36); MEAN PLATELET VOLUME 10.7 fL (7.4-10.4); MONO % 9.8 %; MONO ABS # 0.75 K/uL (0.11-0.59); NEUT % 66.7 %; NEUT ABS # 5.13 K/uL (1.4-6.5); PLATELET COUNT 237 K/uL (130-400); RED CELL DISTRIBUTION WIDTH CV 12.4 % (11.5-14.5); RED CELL DISTRIBUTION WIDTH SD 42.6 fL (36.4-46.3); WHITE BLOOD COUNT 7.67 K/uL (4.8-10.8)
[2018-03-06 15:22] LABS: BLOOD UREA NITROGEN 15 mg/dl (7-18); CALCIUM 9.6 mg/dl (8.5-10.1); CARBON DIOXIDE 26 mmol/L (21-32); CREATININE 0.74 mg/dl (0.60-1.20); GLUCOSE 101 mg/dl (70-99); POTASSIUM 4.5 mmol/L (3.5-5.1); SODIUM 135 mmol/L (136-145)
== END | disposition home or self-care (01) ==
LOC: C.LABBC 09:57
PROVIDERS: ATTEND Orthopaedic Surgery
DX: M75.121 Complete rotator cuff tear or rupture of right shoulder, not specified as traumatic (principal)

== ENCOUNTER → 2018-05-10 | Outpatient (CLI) | payer OTHER ==
[~2018-05-10] MED LIST changes: -AMLO-110 PO; +AMLO5TAB3 PO; +DIFL0.0519 OPR; -NAPHDRO11 OPB; +TRAM-10 PO
[2018-05-10 13:04] LABS: HEMATOCRIT 45.5 % (37-47); HEMOGLOBIN 15.2 g/dL (12.0-16.0); MEAN CELL VOLUME 95.6 fL (80-100); MEAN CORPUSCULAR HEMOGLOBIN 31.9 pg (25-34); MEAN CORPUSCULAR HGB CONC 33.4 g/dl (32-36); MEAN PLATELET VOLUME 11.4 fL (7.4-10.4); PLATELET COUNT 241 K/uL (130-400); RED CELL DISTRIBUTION WIDTH CV 12.3 % (11.5-14.5); RED CELL DISTRIBUTION WIDTH SD 42.9 fL (36.4-46.3)
[2018-05-10 13:40] LABS: BLOOD UREA NITROGEN 14 mg/dl (7-18); CALCIUM 9.1 mg/dl (8.5-10.1); CARBON DIOXIDE 26 mmol/L (21-32); CHOLESTEROL 200 mg/dl (0-200); CREATININE 0.82 mg/dl (0.60-1.20); GLUCOSE 107 mg/dl (70-99); LDL CHOLESTEROL CALCULATED 121 mg/dl; POTASSIUM 4.5 mmol/L (3.5-5.1); SODIUM 136 mmol/L (136-145)
== END | disposition home or self-care (01) ==
LOC: C.LABBC 07:22
PROVIDERS: ATTEND Family Medicine
DX: E03.9 Hypothyroidism, unspecified (principal); I10 Essential (primary) hypertension; E78.00 Pure hypercholesterolemia, unspecified

== ENCOUNTER 2021-04-24 08:58 | Observation (INO) ==
--- NOTE | 2021-04-01 12:35 | PAT Medication Instructions ---
Medication Instructions Date of Service April 01, 2021 Home Medications Medication Instructions Recorded levothyroxine 112 mcg tablet See Rx Instructions PO .COMPLEX 04/23/19 #90 tab amlodipine 5 mg tablet See Rx Instructions PO .COMPLEX 06/14/19 #90 tab atorvastatin 40 mg tablet 40 mg PO DAILY #90 tab 06/04/20 escitalopram oxalate 10 mg tablet 10 mg PO DAILY #90 tab 10/22/20 levothyroxine 112 mcg tablet See Rx Instructions PO .COMPLEX amlodipine 5 mg tablet See Rx Instructions PO .COMPLEX acetaminophen 325 mg tablet See Rx Instructions .ROUTE .COMPLEX aspirin 81 mg tablet 81 mg PO QAM atorvastatin 40 mg tablet 40 mg PO DAILY escitalopram oxalate 10 mg tablet 10 mg PO DAILY nebivolol 10 mg tablet 20 mg PO DAILY spironolactone 25 mg tablet 25 mg PO Q OTHER DAY timolol maleate 0.5 % eye drops 1 drp OP .COMPLEX DO NOT take the morning of surgery spironolactone 25 mg tablet 25 mg PO Q OTHER DAY Take morning of surgery With a small sip of water, OTHERWISE NOTHING TO EAT OR DRINK AFTER MIDNIGHT: levothyroxine 112 mcg tablet See Rx Instructions PO .COMPLEX amlodipine 5 mg tablet See Rx Instructions PO .COMPLEX acetaminophen 325 mg tablet See Rx Instructions .ROUTE .COMPLEX (okay to take up to 4 hours prior to surgery if needed) aspirin 81 mg tablet 81 mg PO QAM (continue as normal unless told otherwise by surgeon) atorvastatin 40 mg tablet 40 mg PO DAILY escitalopram oxalate 10 mg tablet 10 mg PO DAILY nebivolol 10 mg tablet 20 mg PO DAILY timolol maleate 0.5 % eye drops 1 drp OP .COMPLEX Take evening before surgery acetaminophen 325 mg tablet See Rx Instructions .ROUTE .COMPLEX (if needed) timolol maleate 0.5 % eye drops 1 drp OP .COMPLEX Other Notes If you have any questions please call us at [phone] or [phone] or [phone] or [phone]
--- NOTE | 2021-04-02 11:58 | Anesthesiology Consultation ---
Date of Service April 02, 2021 Assessment & Plan (1) Encounter for pre-operative examination: COVID Status: As of 04/02 assessment, patient denies travel to endemic area, known exposure/sick contacts, or symptoms of COVID19. Patient advised to adhere to social distancing guidelines, wear a mask in public and avoid large crowds or unnecessary travel in the 2 weeks leading up to surgery. Preoperative COVID19 testing to be completed prior to surgery per surgeon's arrangements. Pat ient encouraged to be extra cautious/conscientious with COVID precautions between COVID testing and surgery. Cardiology office visit 02/03/2021: "The patient is stable from a cardiovascular standpoint. She was given the diagnosis of coronary artery disease due to an abnormal dobutamine stress test performed in October 2019. The patient has never had cardiac symptoms, including during that abnormal stress test. Furthermore, there were no EKG changes during that stress test. We have discussed proceeding with a nuclear stress test to rule out significant myocardial ischemia." Subsequent myocardial perfusion scan normal with no ischemia. Pt continues on risk factor modifying medications. Chart Review Chart Review: Acceptable Risk for Surgery and Patient seen in Pre Admission Testing Teaching & Discussion Instructed NPO after midnight before surgery, except medications with 15 cc of water. Medication instructions provided according to the PAT guidelines. History Surgery Operation Date: 04/24/21 09:25 Proposed Procedures p Left Total Knee Arthroplasty - Lamont Hylton, Height/Weight Height: 5 ft 1 in Weight: 65.771 kg Allergies Allergy/AdvReac Type Severity Reaction Status Date / Time brimonidine Allergy Intermediate EYE REDNESS Verified 03/26/21 13:16 dorzolamide Allergy Intermediate ITCHING Verified 03/26/21 13:16 EYES AND ITCHING BACK OF THROAT morphine Allergy Intermediate DROPS Verified 03/26/21 13:16 BLOOD PRESSURE AND PASSES OUT cephalexin Allergy Mild RASH Verified 03/26/21 13:16 hydrochlorothiazide Allergy Mild refuses Verified 03/26/21 13:16 due to "Sulfa" Penicillins Allergy Mild RASH Verified 03/26/21 13:16 Sulfa (Sulfonamide Allergy Mild rash Verified 03/26/21 13:16 Antibiotics) propoxyphene AdvReac Mild DIZZINESS, Verified 03/26/21 13:16 LIGHTHEADEDNESS Carboxymethylcellulose Allergy Intermediate EYE REDNESS Uncoded 03/26/21 13:16 Medications Home Medications Medication Instructions Recorded Confirmed Last Taken levothyroxine 112 mcg tablet See Rx Instructions PO .COMPLEX 04/23/19 03/26/21 Unknown #90 tab amlodipine 5 mg tablet See Rx Instructions PO .COMPLEX 06/14/19 03/26/21 Unknown #90 tab acetaminophen 325 mg tablet See Rx Instructions .ROUTE 06/27/19 03/26/21 Unknown .COMPLEX tab aspirin 81 mg tablet 81 mg PO QAM tab 06/27/19 03/26/21 Unknown atorvastatin 40 mg tablet 40 mg PO DAILY #90 tab 06/04/20 03/26/21 Unknown escitalopram oxalate 10 mg tablet 10 mg PO DAILY #90 tab 10/22/20 03/26/21 Unknown nebivolol 10 mg tablet 20 mg PO DAILY tab 10/27/20 03/26/21 Unknown spironolactone 25 mg tablet 25 mg PO Q OTHER DAY tab 02/03/21 03/26/21 Unknown timolol maleate 0.5 % eye drops 1 drp OP .COMPLEX ml 02/03/21 03/26/21 Unknown Past Medical History Medical History (Updated 04/02/21 @ 16:14 by Cisco Padron) Abnormal stress test Patient had abnormal dobutamine stress echo 11/14/2019 (was done for pre-op risk assessment). Declined cardiac catheterization and was thus treated medically. More recent cardiac evaluation with myocardial perfusion study (01/2021) showed normal result with no evidence of ischemia. Anxiety Arthritis Degenerative disc disease Glaucoma Hypercholesterolemia Hypertension Hypothyroidism Rosacea Spinal stenosis Venous insufficiency (chronic) (peripheral) Exercise / Class Metabolic Activity II 4-5 Yardwork/Stairs/Walk up hill (Limited only by knee pain, denies any CP or SOB, could do 1 FOS if she had to but avoids due to knee pain for the past year) Past Family History Family History Father Colorectal cancer Mother TIA (transient ischemic attack) Adrenal insufficiency Sister Bowel cancer Colorectal cancer Past Surgical History Surgical History Breast cyst REMOVED (BENIGN) Family history of reaction to anesthesia SISTER>NAUSEA H/O eye surgery DRAINAGE TUBE PLACED AND LASER SURGERIES FOR GLAUCOMA H/O hysterectomy with unilateral oophorectomy History of carpal tunnel release RT History of cataract surgery RT/LEFT +LENS REPLACED History of total hip arthroplasty RT History of trabeculectomy Hx of colonoscopy with polypectomy S/P rotator cuff repair (02/2018) RT S/P trigger finger release (01/19/17) [place] teeth removed Past Anesthesia History No Hx of Anesthesia Complications (just issues with pain meds (morphine especially)) and No Family Hx of Anesthesia Complications (other than nausea) History of PONV No Hx of PONV and No Hx of Motion Sickness (but does get vertigo) Social History Smoking Status: Never smoker Do You Dip or Chew Tobacco: No Hx Alcohol Use: Yes Alcohol type: wine alcohol intake frequency: 0-2 drinks per day (1-2 glasses) substance use type: does not use Review of Systems Pt denies any recent chest pain, shortness of breath, palpitations, cough, fever, URI, or uncontrolled acid reflux. Physical Exam Vital Signs BP: 121/73 P: 62bpm SPO2: 97% RA T: 98.3 F R: 16 ENMT Mouth: + dental restorations (many crowns and bridges) and + small oral opening; no chipped teeth and no loose teeth Thyromental Distance: < 3.5 Finger Breadths (2.5) Mallampati Class: II Neck + thick neck and + limited neck extension (mildly) Respiratory normal respiratory effort, lungs clear to auscultation Cardiovascular RRR, no murmur, no edema Vessels: no carotid bruit Lab Results Anesthesia Preop Results Results Anesthesia Widget: WBC 6.25 K/uL (4.8-10.8) 04/02/21 Hgb 13.8 g/dL (12.0-16.0) 04/02/21 Hct 40.7 % (37-47) 04/02/21 Plt 221 K/uL (130-400) 04/02/21 Na 135 mmol/L (136-145) L 04/02/21 K 4.3 mmol/L (3.5-5.1) 04/02/21 Cl 100 mmol/L (98-107) 04/02/21 CO2 27 mmol/L (21-32) 04/02/21 BUN 17 mg/dl (7-18) 04/02/21 Creat 0.82 mg/dl (0.6-1.2) 04/02/21 Glucose Level 99 mg/dl (70-99) 04/02/21 PT 10.1 Seconds (9.0-12.0) 04/02/21 PTT 27.1 Seconds (21.0-31.0) 04/02/21 INR 1.0 (0.9-1.1) 04/02/21 Blood Type O Positive 04/02/21 Antibody Screen NEGATIVE 04/02/21 Testing Electrocardiogram Date: 04/02/21 Sinus bradycardia 57 bpm otherwise normal EKG. Chest X-Ray Date: 06/27/20 Stress Test Date: 02/10/21 Conclusions: 1. No scintigraphic evidence of a prior myocardial infarction or stress-induced myocardial ischemia. 2. No exercise-induced chest pain. 3. No EKG changes. 4. Normal left ventricular systolic function without wall motion abnormality. Left ventricular ejection fraction is 71 %. Other Testing Dobutamine stress echocardiogram 11/14/2019 LV systolic function is normal. Mild to moderate aortic regurgitation. RVSP is elevated at 30-40 mmHg. Abnormal dobutamine echocardiogram with findings suggestive of inducible ischemia involving the basal inferior and posterior miner.
--- NOTE | 2021-04-23 16:53 | History & Physical Report ---
Date of Service April 23, 2021 Assessment & Plan (1) Osteoarthritis of left knee: We will proceed with a left total knee arthroplasty. Postoperatively she will be started on aspirin for DVT prophylaxis and kept overnight in the hospital for postoperative medical management. She plans to use [place] therapy upon discharge. History of Present Illness Chief Complaint: Osteoarthritis of the left knee. Primary Care Provider: Jack Delaney MD Mary is a pleasant 85-year-old female who is been doing with chronic worsening left knee pain. X-rays and clinical examination been diagnostic for advanced osteoarthritis of her left knee. After failing conservative treatment, she has elected proceed with a left total knee arthroplasty.. Allergies Allergy/AdvReac Type Severity Reaction Status Date / Time brimonidine Allergy Intermediate EYE REDNESS Verified 03/26/21 13:16 dorzolamide Allergy Intermediate ITCHING Verified 03/26/21 13:16 EYES AND ITCHING BACK OF THROAT morphine Allergy Intermediate DROPS Verified 03/26/21 13:16 BLOOD PRESSURE AND PASSES OUT cephalexin Allergy Mild RASH Verified 03/26/21 13:16 hydrochlorothiazide Allergy Mild refuses Verified 03/26/21 13:16 due to "Sulfa" Penicillins Allergy Mild RASH Verified 03/26/21 13:16 Sulfa (Sulfonamide Allergy Mild rash Verified 03/26/21 13:16 Antibiotics) propoxyphene AdvReac Mild DIZZINESS, Verified 03/26/21 13:16 LIGHTHEADEDNESS Carboxymethylcellulose Allergy Intermediate EYE REDNESS Uncoded 03/26/21 13:16 Home Medications Medication Instructions Recorded Confirmed Type levothyroxine 112 mcg tablet See Rx Instructions PO .COMPLEX 04/23/19 03/26/21 Rx #90 tab amlodipine 5 mg tablet See Rx Instructions PO .COMPLEX 06/14/19 03/26/21 Rx #90 tab acetaminophen 325 mg tablet See Rx Instructions .ROUTE 06/27/19 03/26/21 History .COMPLEX tab aspirin 81 mg tablet 81 mg PO QAM tab 06/27/19 03/26/21 History atorvastatin 40 mg tablet 40 mg PO DAILY #90 tab 06/04/20 03/26/21 Rx escitalopram oxalate 10 mg tablet 10 mg PO DAILY #90 tab 10/22/20 03/26/21 Rx nebivolol 10 mg tablet 20 mg PO DAILY tab 10/27/20 03/26/21 History spironolactone 25 mg tablet 25 mg PO Q OTHER DAY tab 02/03/21 03/26/21 History timolol maleate 0.5 % eye drops 1 drp OP .COMPLEX ml 02/03/21 03/26/21 History Past Med/Surg History Medical History Abnormal stress test Patient had abnormal dobutamine stress echo 11/14/2019 (was done for pre-op risk assessment). Declined cardiac catheterization and was thus treated medically. More recent cardiac evaluation with myocardial perfusion study (01/2021) showed normal result with no evidence of ischemia. Anxiety Arthritis Degenerative disc disease Glaucoma Hypercholesterolemia Hypertension Hypothyroidism Rosacea Spinal stenosis Venous insufficiency (chronic) (peripheral) Surgical History Breast cyst REMOVED (BENIGN) Family history of reaction to anesthesia SISTER>NAUSEA H/O eye surgery DRAINAGE TUBE PLACED AND LASER SURGERIES FOR GLAUCOMA H/O hysterectomy with unilateral oophorectomy History of carpal tunnel release RT History of cataract surgery RT/LEFT +LENS REPLACED History of total hip arthroplasty RT History of trabeculectomy Hx of colonoscopy with polypectomy S/P rotator cuff repair (02/2018) RT S/P trigger finger release (01/19/17) [place] teeth removed Family History Father Colorectal cancer Mother TIA (transient ischemic attack) Adrenal insufficiency Sister Bowel cancer Colorectal cancer Social History Smoking Status: Never smoker Second Hand Exposure: Yes ( A CHILD); Hx Alcohol Use: Yes Alcohol type: wine Preferred Language: Hungarian Visual Impairment: No Limitations Hearing Ability: Normal Tubing Drier Required: No Beliefs That Will Affect Care: None marital status: Current Living Situation: Spouse Current Living Situation Comment: Living at [facility] current occupational status: retired Feels Safe at Home: Yes Childhood Exposure to Second-Hand Smoke: Yes Dental Care, Regularly: Yes Physical Activity Frequency: 3-4 Times per Week Physical Activity Frequency Comment: walking Seatbelt Use: always Assistive Devices: Glasses Review of Systems All systems reviewed & are unremarkable except as noted in HPI & below. Physical Exam On physical examination of the left knee, she has a trace effusion. She has good motion from 0 to 125 degrees. She has no instability.. Constitutional WD/WN, vitals as above Eyes PERRL, conjunctivae normal, anicteric sclerae ENMT external ear and nose normal, oropharynx normal Neck trachea midline, no thyromegaly Respiratory normal respiratory effort Cardiovascular RRR, no murmur, no edema Gastrointestinal (Abdomen) normal bowel sounds, soft, nontender, no hepatosplenomegaly Psychiatric A+Ox3, euthymic affect Results & Data Results & Data Laboratory Results . Diagnostic Findings X-rays of the left knee do show advanced osteoarthritis with joint space narrowing, osteophyte formation, and [id number] articulation. PG Care Time/CCT Total # of Minutes Spent Total Time Spent with Patient: Total time spent is greater than 50% in coordination of care (as documented) at patient's floor/unit and/or counseling patient: Coding Level of Care Code None Diagnoses Osteoarthritis of left knee M17.12
[~2021-04-24 08:58] MED LIST changes: -ACET-1693 PO; +ACETAMINOPHEN 500 MG TAB PO SCH; -AMLO5TAB3 PO; -ASPI-435 PO; +BUPIVACAINE 0.5 % 5 MG/1 ML PF 10ML VIAL ONE; -CHOL1000 PO; -CLR10 PO; -CYAN10005 PO; -DIFL0.0519 OPR; -ESCI10TA17 PO; +FAMOTIDINE 20 MG TAB PO SCH; -LEVO100T PO; +LR 500ML BOLUS, THEN 15ML/HR IV SCH; +LR 60ML/HR IV SCH; -NEBI10TA2 PO; +ROPIVACAINE 0.5% HCL/PF 150 MG, BUPIVACAINE 0.75% MPF 20 ML, EPINEPHrine 30MG/30ML (OR ... INSTIL SCH; -SPIR25TA PO; -TRAM-10 PO; +TRANEXAMIC ACID 1,000 MG **IV Intra-op IV SCH; +TRANEXAMIC ACID 1,000 MG **IV Pre-op IV SCH; +ceFAZolin 1000MG 1,000 MG/7.5 ML SYR IV SCH; +dexAMETHasone 4 MG TAB PO SCH
[2021-04-24] MEDS ORDERED: PROPOFOL IV EMULSION 10 MG/ML 20 ML VIAL IV ONE ×2 (11:20→13:51)
[2021-04-24] MEDS ORDERED: DEXAMETHASONE SOD INJ 4 MG/ML VIAL ONE ×2 (11:20→13:51)
[2021-04-24] MEDS ORDERED: LIDOCAINE 2% 2 ML VIAL/AMP(20MG/ML) INFIL ONE (11:20)
[2021-04-24] MEDS ORDERED: fentaNYL citrate 100 MCG/2 ML VIAL ONE (11:21)
[2021-04-24] MEDS ORDERED: MIDAZOLAM HCL 1 MG/ML 2ML VIAL ONE (11:21)
[2021-04-24] MEDS ORDERED: ONDANSETRON INJ 2 MG/ML 2 ML VIAL IV PRN ×2 (11:24→15:36)
[2021-04-24] MEDS ORDERED: ATROPINE SULFATE 0.1 MG/ML 10ML SYR IV PRN (11:24)
[2021-04-24] MEDS ORDERED: ePHEDrine sulfate 50 MG/ML AMP IV PRN (11:24)
[2021-04-24] MEDS ORDERED: fentaNYL citrate 100 MCG/2 ML VIAL IV PRN (11:24)
[2021-04-24] MEDS ORDERED: TRANEXAMIC ACID / 0.7% NACL 1,000 MG/100 ML BAG IV ONE (11:39)
--- NOTE | 2021-04-24 11:52 | History & Physical Bridge Note ---
Date of Service April 24, 2021 History & Physical Bridge Note I have examined the patient, reviewed the History & Physical and in the interval since the performance of the History & Physical I have noted the following changes of clinical significance: no changes noted
[2021-04-24] MEDS ORDERED: ORTHO JOINT ANESTHETIC ONE (12:23)
[2021-04-24] MEDS ORDERED: Nursing to Pharmacy Communication SCH (12:30)
--- NOTE | 2021-04-24 14:39 | Operative Report ---
PG Post Operative Report Pre & Post Diagnosis Operation Date: 04/24/21 11:10 Pre-Op Diagnosis: Degenerative Joint Disease Left Knee Post-Op Diagnosis: Degenerative Joint Disease Left Knee I identified the patient and participated in the time-out.: Yes Procedure Operation Date: 04/24/21 11:10 Actual Procedures p Left Total Knee Arthroplasty(Left) - Lamont Hylton DO Surgeon Lamont Hylton DO Director Of [employer] Analytics Lamont Evans PAC Estimated Blood Loss 10 Findings Consistent with Post-Op Diagnosis Specimens Left femoral and tibial bone Complications none Disposition Disposition: Recovery Room Indications Mary is a pleasant 85-year-old female who is been dealing with chronic worsening left knee pain. X-rays and clinical examination have been diagnostic for advanced osteoarthritis of the left knee. After failing conservative treatment, she elected proceed with a left total knee arthroplasty. Description of Procedure Implants used: I used a Allie Persona total knee arthroplasty system with a size 9 narrow femur, D tibia, 32 patella, and a size 10 medial congruent polyethylene bearing. All components were cemented in place with Refobacin cement. Mary arrived [facility] for the above procedure. She was seen in the preoperative holding area and the operative extremity was identified and signed. She was given a preoperative antibiotic, TXA, a spinal anesthetic and an adductor nerve block. She was taken back to the operating room and laid on the table in supine position. She was given basic sedation. The operative knee was then prepped and draped in sterile fashion. A timeout was done, and the patient and the operative extremity was properly identified. A midline incision was made directly over the patella. Dissection was taken down to the extensor mechanism. A subvastus arthrotomy was used. The medial retinaculum was released and the fat pad was mostly excised. The knee was flexed and the ACL, PCL, and meniscus were removed. A drill was sent down the center of the femoral canal followed by an intramedullary yahaira. Off that yahaira a distal femoral cutting block was placed. 9 mm was resected off the distal femur at 5 of valgus. A posterior referencing AP sizing guide was then placed on the distal femur. The femur measured to be a size 9 narrow. 2 drill holes were placed in 3 of external rotation. A 4-in-1 cutting block was then impacted into place. Anterior, posterior, and chamfer cuts were then made. The proximal tibia was then exposed. An external tibial alignment guide was placed. A tibial cut guide was then anchored in place and the proximal tibia was then resected. The posterior aspect of the knee was then opened up and any additional meniscus fragments and osteophytes were removed. The tibia measured to be a size D. The tibial plate was then placed in the appropriate rotation and the tibia was drilled and punched. Trial components were then placed. I used a size 10 medial congruent polyethylene insert. The knee was brought through a full range of motion and felt to be stable. The peg holes for the femoral component were then drilled. The patella was then everted and 9 mm was resected off the posterior aspect of the patella. The patella measured to be a size 32-. 3 peg holes were then drilled. A trial patella was placed. The knee was once again brought through a full range of motion and felt to be stable. Trial components were then removed. The surrounding soft tissues were injected with 100 cc of an orthopedic pain control cocktail. All components were then cemented into place with Refobacin cement. The final polyethylene insert was then snapped into place. Once cement was dry the tourniquet was deflated. Hemostasis was obtained. A dilute betadyne lavage was then done for 3 minutes. The joint was then irrigated with normal saline solution. The subvastus arthrotomy was then closed with #1 Vicryl suture. The skin was closed with 2-0 Vicryl, 3-0V lock suture, and chelsea. A soft compressive dressing was placed. She was then transferred to a hospital bed and taken to the postanesthesia care unit in stable condition. She tolerated the procedure well. Lamont Evans PA-C, was present for the entire procedure. He was critical for patient positioning, prepping, draping, retraction exposure, wound closure and application of sterile dressing. I attest to the content of the Intraoperative Record and any orders documented therein. Any exceptions are noted below.
[2021-04-24] MEDS ORDERED: oxyCODONE HCL IR 5 MG TAB (IMMEDIATE RELEASE) PO PRN (15:36)
[2021-04-24] MEDS ORDERED: METOCLOPRAMIDE HCL INJ 5 MG/ML 2 ML VIAL IV PRN (15:36)
[2021-04-24] MEDS ORDERED: bisacodyL 10 MG SUPP PR PRN (15:36)
[2021-04-24] MEDS ORDERED: NALOXONE HCL 0.4 MG/1 ML VIAL/CARP IV PRN (15:36)
[2021-04-24] MEDS ORDERED: MAGNESIUM HYDROXIDE SUSP 30 ML UDC PO PRN (15:36)
[2021-04-24] MEDS ORDERED: HYDROmorphone INJ 0.5 MG/0.5 ML SYR IV PRN (15:36)
--- NOTE | 2021-04-24 15:36 | Anesthesiology Progress Note ---
Date of Service April 24, 2021 Anesthesia Post Procedure Vital Signs Vital Signs: Temp Pulse Pulse Resp BP Pulse Ox 04/24/21 15:25 55 L 13 128/51 L 100 04/24/21 15:15 57 L 15 121/52 L 100 04/24/21 15:08 97.2 F L 59 L 14 108/54 L 95 04/24/21 09:53 98.2 F 57 L 18 166/70 H 98 Transfer of Care Handoff Completed per policy Notes Mental Status: alert / awake / arousable and participated in evaluation Patient Amnestic to Procedure: Yes Nausea / Vomiting: adequately controlled Pain: adequately controlled Airway Patency, RR, SpO2: stable & adequate BP & HR: stable & adequate Hydration State: stable & adequate Neuraxial Anesthesia: was administered and sensory block is resolving Anesthetic Complications: no major complications apparent and Pt Satisfied with anesthetic care
--- NOTE | 2021-04-24 15:38 | XRay Report ---
XR knee LT 1 or 2V routine HISTORY: 85 years-old Female Surgical Post Op left knee total joint arthroplasty COMPARISON: 07/05/2019 TECHNIQUE: 2 views of the left knee FINDINGS: Left knee total joint arthroplasty and patella resurfacing. There is a small anterior cortical defect involving the distal tibial diaphysis. Anterior midline skin chelsea are noted along with expected p ostoperative soft tissue swelling and deep tissue air. No malalignment or unexpected opaque foreign b sonia. IMPRESSION: Left knee total joint arthroplasty with satisfactory alignment. ACT 112: Negative or not required by law. The above report was generated using voice recognition software. It may contain grammatical, syntax o r spelling errors. Electronically signed by: Adria Wu M.D. 04/24/2021 3:37 PM
[2021-04-24] MEDS: SODIUM CHLORIDE 0.9% 1000ML 1,000 ML IV SCH (16:16)
[2021-04-24] MEDS ORDERED: SPIRONOLACTONE 25 MG TAB PO SCH (16:30)
[2021-04-24] MEDS: KETOROLAC TROMETHAMINE 15 MG/ML VIAL IV SCH ×2 (17:05→21:01)
[2021-04-24] MEDS ORDERED: SENNA 8.6 MG TAB PO SCH (21:00)
[2021-04-24] MEDS ORDERED: amLODIPine BESYLATE 5 MG TAB PO SCH (21:00)
[2021-04-24] MEDS: ceFAZolin 2000MG 2,000 MG/15 ML SYR IV SCH (21:01)
[2021-04-24] MEDS: ASPIRIN 81 MG ECTAB PO SCH (21:02)
[2021-04-24] MEDS: DOCUSATE SODIUM 100 MG CAP PO SCH (21:02)
[2021-04-24] MEDS: TIMOLOL MALEATE 0.5% OP SOLN 5 ML BTL OP SCH (21:02)
[2021-04-24] MEDS: ACETAMINOPHEN 500 MG TAB PO SCH (21:03)
[2021-04-25] MEDS: SODIUM CHLORIDE 0.9% 1000ML 1,000 ML IV SCH (01:44)
[2021-04-25] MEDS: KETOROLAC TROMETHAMINE 15 MG/ML VIAL IV SCH ×2 (02:44→09:27)
[2021-04-25] MEDS: ACETAMINOPHEN 500 MG TAB PO SCH (05:45)
[2021-04-25] MEDS: ceFAZolin 2000MG 2,000 MG/15 ML SYR IV SCH (05:45)
[2021-04-25] MEDS ORDERED: LEVOTHYROXINE SODIUM 112 MCG TABLET PO SCH (06:30)
--- NOTE | 2021-04-25 06:51 | Orthopedic Progress Note ---
Date of Service April 25, 2021 Assessment & Plan (1) Status post left knee replacement: Overall she is doing fairly well. The nerve block should wear off sometime this morning. She will be seen by physical therapy today for ambulation and range of motion exercises. She is on aspirin for DVT prophylaxis. As long as she does well with therapy, she can be discharged to [facility] rehab later today. The dressing can be changed after physical therapy today. She will then follow-up with orthopedics in 2 weeks. Mindy Hernandez was seen and examined at bedside this morning. Overall she is doing very well. She is not having much pain in the left knee. She was able to get some sleep last night. The nerve block is still working some. She has no complaints.. Review of Systems All systems reviewed & are unremarkable except as noted in HPI & below. Physical Exam On physical examination of the left leg, she still has some numbness in her leg. She has not regained full dorsiflexion of her ankle. The dressing is clean and dry. Her leg is out full extension.. Results & Data Results & Data Laboratory Results . Diagnostic Findings X-rays of the left knee show the prosthesis to be in anatomic alignment without any evidence of fracture, dislocation, or loosening. PG Care Time/CCT Total # of Minutes Spent Total Time Spent with Patient: Total time spent is greater than 50% in coordination of care (as documented) at patient's floor/unit and/or counseling patient: Coding Level of Care Code 13252 Post Operative Follow-Up Diagnoses Status post left knee replacement Z96.652
--- NOTE | 2021-04-25 06:52 | Discharge Summary ---
Date of Service April 25, 2021 Admission HPI (Per Admitting) Mary is a pleasant 85-year-old female who is been doing with chronic worsening left knee pain. X-rays and clinical examination been diagnostic for advanced osteoarthritis of her left knee. After failing conservative treatment, she has elected proceed with a left total knee arthroplasty.. Admission Exam (Per Admitting) On physical examination of the left knee, she has a trace effusion. She has g ood motion from 0 to 125 degrees. She has no instability.. Principal Diagnosis Same as "Discharge Diagnosis" noted below under Discharge Instructions. Discharge Exam On physical examination of the left leg, she still has some numbness in her leg. She has not regained full dorsiflexion of her ankle. The dressing is clean and dry. Her leg is out full extension.. Discharge Data Procedures Performed Operation Date: 04/24/21 11:10 Actual Procedures p Left Total Knee Arthroplasty(Left) - Lamont Hylton DO Ordered Studies 04/24/21 05:00 US - OR guided needle placemen Routine Hospital Course (1) Status post left knee replacement: On April 24, 2021 Mary arrived at [facility] and underwent a left knee replacement without complication. She had a spinal anesthetic. Postoperatively she was started on aspirin for DVT prophylaxis and transferred to the general orthopedic floors. Her hospital course was uneventful. On postop day #1 her vital signs were stable and her pain was well controlled. She was able to participate well with physical therapy doing ambulation and range of motion exercises. She was then discharged to [facility] rehab. She will follow-up with orthopedics in 2 weeks. PG Care Time/CCT Total # of Minutes Spent Total Time Spent with Patient: Total time spent is greater than 50% in coordination of care (as documented) at patient's floor/unit and/or counseling patient: Discharge Plan Discharge Items Patient Disposition: Home - Home Health Services Reason For Visit: Degenerative Joint Disease Left Knee Discharge Diagnosis: Left total knee replacement Activity: As commented below Non-emergency contact: Surgeon Call non-emergency contact if: your wound has increased redness and your wound has increased drainage Follow-up/Referrals: Jack Delaney MD [Primary Care Provider] - Diet: Regular Addtl Attending Provider Instructions: Activity and Therapy Recommendations: * If you are using [facility] then therapy will be provided at your home until they feel you have accomplished all of your goals. * If you are using [facility] then Physical Therapy will be provided until they feel you are ready to start Outpatient Physical Therapy. * If you are not using home therapy then Outpatient Physical Therapy should start about 3-5 days from your day of surgery. Therapy will last about 6-10 weeks * It is important not to put a pillow under your knee when you are relaxing or sleeping. It is just as important to make sure you are getting your knee perfectly straight as it is to regain your knee bend. * You were shown a series of exercises in the hospital. Do these exercises three times each day including the exercises you were shown in physical therapy. * Get up and walk several times each day. For the first four weeks, try not to stand or walk for more than one hour at a time. If you do stand or walk for more than one hour, you will not hurt anything, but your leg will likely swell. * As you feel comfortable, you may change from the walker or crutches to a cane and then to independent walking. Medications: * Narcotic You will likely be sent home from the hospital with a prescription for the narcotic pain medication that worked best throughout your stay. * Aspirin Most patients will be required to take Aspirin 81mg twice a day for 6 weeks after surgery. This is obtained [id number] and a prescription is not necessary. * Other medications may be prescribed for specific circumstances. If you have any questions, please call the office at . * Resume previous home medications unless otherwise instructed TEDs/Elastic Stockings: The white elastic stockings help limit swelling and prevent blood clots from forming in your legs.~ The more you wear them, the more they work. Wear them for six weeks. Dressing Care: The dressing can be changed after physical therapy on postop day #1. Daily dry dressing changes for a few days, especially if the incision is still draining some. If the incision is not draining then you may leave the chelsea open to air. If there is a little bit of drainage or if the chelsea are getting stuck on your clothing then cover the incision with a dry dressing. The chelsea will be removed at your 2 week follow-up appointment. Showering: You may shower 5 days from the day of surgery as long as the incision is no longer draining. You may shower with the chelsea exposed. Let soapy water run over the chelsea and pat them dry. Do not scrub or soak the incision. Things To Watch For: * Drainage from the incision site that occurs more than one week after your surgery. * Increased redness at the incision site. * Fever above 102 degrees Fahrenheit. * Unusual chest pain or shortness of breath. * Call [facility] at with any of the above problems Follow-Up Visit: Follow-up with Dr. Hylton's PA (Lamont Evans) 2-3 weeks after your day of surgery. He will remove your chelsea and answer any questions. If you have any additional questions or concerns, Dr Hylton is usually in the office at the same time and will be available An appointment was probably scheduled when you signed-up for surgery in the office. If you have any questions call Office Instructions: More detailed instructions as well as Frequently Asked Questions were provided in a folder by our office when you signed-up for surgery. Please review these instructions when you get home. If you have any further questions or concerns, please feel free to call the office at [phone] Pending Studies at Discharge: No Stand-Alone Forms: [facility] Medications and DC Order Prescriptions: New tramadol 50 mg tablet 50 mg PO Q6H PRN (Reason: pain) Qty: 30 RF: 0 aspirin 81 mg Tablet,Delayed Release (Dr/Ec) 81 mg PO BID 42 Days Qty: 84 RF: 0 Continued Bystolic 10 mg tablet 20 mg PO DAILY RF: 0 levothyroxine 112 mcg tablet See Patient Comments PO .COMPLEX Qty: 90 RF: 1 amlodipine 5 mg tablet See Patient Comments PO .COMPLEX Qty: 90 RF: 1 atorvastatin 40 mg tablet 40 mg PO DAILY Qty: 90 RF: 1 escitalopram oxalate 10 mg tablet 10 mg PO DAILY Qty: 90 RF: 1 spironolactone 25 mg tablet 25 mg PO Q OTHER DAY RF: 0 timolol maleate 0.5 % drops 1 drp OP .COMPLEX RF: 0 acetaminophen 325 mg tablet See Rx Instructions .ROUTE .COMPLEX RF: 0 Discontinued aspirin 81 mg tablet 81 mg PO QAM RF: 0 Discharge Orders: Discharge Order (Routine); Ordered 04/25/21 Ordered By: Lamont Hylton Admission Data Admit Date/Time: 04/24/21 15:10 Attending Provider: Lamont Hylton Admit Provider: Lamont Hylton Primary Care Provider: Jack Delaney
[2021-04-25] MEDS ORDERED: dexAMETHasone 4 MG TAB PO SCH (08:00)
[2021-04-25] MEDS: ASPIRIN 81 MG ECTAB PO SCH (08:40)
[2021-04-25] MEDS: TIMOLOL MALEATE 0.5% OP SOLN 5 ML BTL OP SCH (08:43)
[2021-04-25] MEDS: DOCUSATE SODIUM 100 MG CAP PO SCH (08:45)
[2021-04-25] MEDS ORDERED: ATORVASTATIN 40 MG TAB PO SCH (09:00)
[2021-04-25] MEDS ORDERED: ESCITALOPRAM OXALATE 10 MG TAB PO SCH (09:00)
[2021-04-25] MEDS ORDERED: METOPROLOL TARTRATE 100 MG TAB PO SCH (09:00)
[2021-04-25] MEDS ORDERED: MULTIVITAMIN TAB PO SCH (09:00)
== END 2021-04-25 11:35 ==
LOC: ASU 08:58 → 3E 08:58